=== PATIENT | female | born 1990 | race Caucasian/White ===

== ENCOUNTER → 2019-09-24 08:15 | Outpatient (CLI) | payer OTHER, SELFPAY ==
--- NOTE | ~2019-09-24 | MMUS_ITS ---
EXAMINATION: MM diagnostic garfield BI w nick, US breast RT limited, US breast LT complete HISTORY: Palpable right breast abnormality. TECHNIQUE: Additional 3-D tomosynthesis images of the breasts were performed and synthetic 2-D images were generated. CAD analysis was submitted and interpreted. High resolution bilateral breast ultraso und was performed. COMPARISON: None BREAST PARENCHYMAL COMPOSITION: The breasts are heterogenously dense, which may obscure small masses. FINDINGS: MAMMOGRAPHIC FINDINGS: There are no suspicious masses, calcifications or architectural distortion in either breast to sugges t malignancy. ULTRASOUND: Bilateral breast ultrasound: Normal heterogeneous echotexture. No focal masses to suggest malignancy. IMPRESSION: 1. No mammographic or sonographic evidence for malignancy. BI-RADS CATEGORY 1 - NEGATIVE Reviewed, dictated and finalized at location A. IMPRESSION: 1. No mammographic or sonographic evidence for malignancy. BI-RADS CATEGORY 1 - NEGATIVE IMPRESSION: 1. No mammographic or sonographic evidence for malignancy. BI-RADS CATEGORY 1 - NEGATIVE
== END ==
PROVIDERS: Visit Provider Student in an Organized Health Care Education/Training Program
DX: N63.10 Unspecified lump in the right breast, unspecified quadrant (principal); N64.4 Mastodynia
CPT/HCPCS: 76641; 76642; 77062; 77066; G0279

== ENCOUNTER → 2020-12-30 11:43 | Outpatient (CLI) | payer OTHER, SELFPAY ==
--- NOTE | ~2020-12-30 | US_ITS ---
EXAMINATION: US OB <=14 wk fetus w TV DATE: 12/30/2020 12:13 INDICATION: First trimester dating and viability assessment TECHNIQUE: Real-time pelvic transabdominal and transvaginal ultrasound was performed. COMPARISON: None. FINDINGS: The uterus measures 10 x 5.2 x 5.9 cm. There is an intrauterine gestational sac. A yolk sa c is identified. heart motion is identified measuring 155 beats per minute (bpm) by M-mode Dopp ler. The crown rump length measures 1.5 cm , which correlates with an estimated gestational age of 8 weeks and 0 day(s) (+/-) 5 day(s). The right ovary measures 3.2 x 1.8 x 1.6 cm. The left ovary measures 3.5 x 2 x 2.2 cm. There is sonu l vascular flow in the ovaries. There is no free fluid in the pelvis. IMPRESSION: 1. Live intrauterine with an estimated gestational age of 8 weeks and 0 day(s) (+/-) 5 day( s) and an estimated delivery date of 08/11/2021. Reviewed, dictated and finalized at location B. RNED GOODS REPAIRER IMPRESSION: 1. Live intrauterine with an estimated gestational age of 8 weeks and 0 day(s) (+/-) 5 day(s) and an estimated delivery date of 08/11/2021.
== END ==
PROVIDERS: PCP Family Medicine; Visit Provider Student in an Organized Health Care Education/Training Program
DX: O36.80X0 Pregnancy with inconclusive fetal viability, not applicable or unspecified (principal); Z3A.08 8 weeks gestation of pregnancy
CPT/HCPCS: 76801; 76817

== ENCOUNTER 2021-01-25 12:04 | Outpatient (CLI) | payer OTHER, SELFPAY ==
[2021-01-28 18:45] LABS: Hematocrit 40.7 % (35.0-45.0); Hemoglobin 13.9 g/dL (11.7-15.5); MCH 34.2 pg (27.0-33.0); RDW 13.2 % (11.0-15.0); Red Blood Cell Count 4.07 Mill/uL (3.80-5.10)
== END 2021-01-25 12:05 | disposition home or self-care (01) ==
LOC: ANHLAB 12:08
PROVIDERS: PCP Family Medicine; Visit Provider Student in an Organized Health Care Education/Training Program
DX: Z34.91 Encounter for supervision of normal pregnancy, unspecified, first trimester (principal); Z3A.11 11 weeks gestation of pregnancy
CPT/HCPCS: 36415; 83021

== ENCOUNTER 2021-01-30 10:20 | Outpatient (CLI) | payer OTHER, SELFPAY ==
[2021-02-02 14:47] LABS: Progesterone 22.8 ng/mL (***)
== END 2021-01-30 10:21 | disposition home or self-care (01) ==
LOC: ANHBWCLAB 10:21
PROVIDERS: PCP Family Medicine; Visit Provider Student in an Organized Health Care Education/Training Program
DX: O20.9 Hemorrhage in early pregnancy, unspecified (principal)
CPT/HCPCS: 36415; 84144; 84702

== ENCOUNTER 2021-01-31 09:54 | Outpatient (CLI) | payer OTHER, SELFPAY ==
--- NOTE | ~2021-01-31 | US_ITS ---
EXAMINATION: US OB <= 14 weeks fetus DATE: 01/31/2021 10:19 INDICATION: Hemorrhage during late first trimester of TECHNIQUE: Real-time pelvic ultrasound utilizing both a transvaginal and transabdominal probe was pe rformed. The interpreting radiologist was not present for the study. COMPARISON: 12/30/2020 FINDINGS: The uterus measures 14.0 x 11.8 x 7.6 cm. There is an intrauterine gestational sac with single livin g fetus. The crown rump length measures 6.5 cm, which is concordant within 2 days of the previously e stimated gestational age of 12 weeks and 4 days. heart motion is identified measuring 148 beats per minute (bpm) by M-mode Doppler. The placenta is anterior with no evident subchorionic hematoma. The right and left ovaries are not visualized. There is no free fluid in the pelvis. IMPRESSION: 1. Single living fetus with heart rate of 148 bpm. 2. [place]-rump length of 6.5 cm which is concordant with previously estimated gestational age by ultra sound of 12 weeks 4 day(s) based upon ultrasound dated 12/30/2020 with ultrasound estimated date of d elivery (GUILLERMO) of 08/11/2021. Reviewed, dictated and finalized at location A. TING SALES REPRESENTATIVE IMPRESSION: 1. Single living fetus with heart rate of 148 bpm. 2. Y[place]-rump length of 6.5 cm which is concordant with previously estimated ge stational age by ultrasound of 12 weeks 4 day(s) based upon ultrasound dated with ultrasound estimated date of delivery (GUILLERMO) of 08/11/2021.
== END 2021-01-31 09:55 | disposition home or self-care (01) ==
LOC: ANHIMG 09:56
PROVIDERS: PCP Family Medicine; Visit Provider Student in an Organized Health Care Education/Training Program
DX: O20.9 Hemorrhage in early pregnancy, unspecified (principal); Z3A.12 12 weeks gestation of pregnancy
CPT/HCPCS: 76801

== ENCOUNTER 2021-05-04 09:59 | Outpatient (CLI) | payer OTHER, SELFPAY ==
[2021-05-04 11:48] LABS: Basophils Percent Auto 0.4 % (0.2-1.2); Eosinophils Absolute Auto 0.1 K/mm3 (0-0.3); Eosinophils Percent Auto 0.9 % (0-4.4); Hematocrit 37.3 % (37.0-47.0); Hemoglobin 12.4 g/dL (12.0-15.0); Immature Granulocyte Absolute 0.08 K/mm3 (0.00-0.031); Immature Granulocyte Percent A 0.9 % (0-0.5); Lymphocytes Absolute Auto 0.82 K/mm3 (0.9-3.2); Lymphocytes Percent Auto 9.6 % (18.3-44.2); Mean Corpuscular HGB Conc 33.2 g/dl (32-36); Mean Corpuscular Hemoglobin 33.8 pg (26-34); Mean Corpuscular Volume 101.6 fl (80-100); Mean Platelet Volume 10.5 fl (7.4-10.4); Monocytes Absolute Auto 0.7 K/mm3 (0.1-0.6); Monocytes Percent Auto 8.2 % (2.6-8.5); Neutrophils Absolute Auto 6.8 K/mm3 (1.3-6.7); Platelet Count Result 157 k/mm3 (150-375); Red Blood Count 3.67 M/mm3 (4.2-5.4); Red Cell Distribution Width 13.2 % (11.5-14.5); White Blood Count 8.6 K/mm3 (4.5-10.0)
[2021-05-04 11:56] LABS: Glucose 1 Hour PP 50gm Dose 114 mg/dL
== END 2021-05-04 10:00 | disposition home or self-care (01) ==
LOC: ANHLAB 10:01
PROVIDERS: PCP Family Medicine; Visit Provider Student in an Organized Health Care Education/Training Program
DX: Z34.02 Encounter for supervision of normal first pregnancy, second trimester (principal); Z3A.00 Weeks of gestation of pregnancy not specified
CPT/HCPCS: 36415; 82947; 85025

== ENCOUNTER 2021-06-28 09:01 | Outpatient (CLI) | payer OTHER, SELFPAY ==
[2021-06-29 09:58] LABS: Basophils Percent Auto 0.3 % (0.2-1.2); Eosinophils Absolute Auto 0.1 K/mm3 (0-0.3); Eosinophils Percent Auto 1.8 % (0-4.4); Hematocrit 41.8 % (37.0-47.0); Hemoglobin 12.8 g/dL (12.0-15.0); Immature Granulocyte Absolute 0.06 K/mm3 (0.00-0.031); Immature Granulocyte Percent A 0.9 % (0-0.5); Lymphocytes Absolute Auto 1.07 K/mm3 (0.9-3.2); Lymphocytes Percent Auto 16.5 % (18.3-44.2); Mean Corpuscular HGB Conc 30.6 g/dl (32-36); Mean Corpuscular Hemoglobin 33.2 pg (26-34); Mean Corpuscular Volume 108.3 fl (80-100); Mean Platelet Volume 11.2 fl (7.4-10.4); Monocytes Absolute Auto 0.6 K/mm3 (0.1-0.6); Monocytes Percent Auto 9.2 % (2.6-8.5); Neutrophils Absolute Auto 4.6 K/mm3 (1.3-6.7); Neutrophils Percent Auto 71.3 % (45.5-73.1); Platelet Count Result 149 k/mm3 (150-375); Red Blood Count 3.86 M/mm3 (4.2-5.4); Red Cell Distribution Width 14.6 % (11.5-14.5); White Blood Count 6.5 K/mm3 (4.5-10.0)
[2021-06-29 10:49] LABS: HIV 1/2 Ab P24 Ag Result Negative (Negative)
[2021-06-30 06:30] LABS: Rapid Plasma Reagin Non-Reactive (NonReactive)
== END 2021-06-28 09:02 | disposition home or self-care (01) ==
PROVIDERS: PCP Family Medicine; Visit Provider Student in an Organized Health Care Education/Training Program
DX: Z34.02 Encounter for supervision of normal first pregnancy, second trimester (principal); Z3A.29 29 weeks gestation of pregnancy
CPT/HCPCS: 36415; 85025; 86592; 86703; G0432

== ENCOUNTER 2021-08-13 10:08 | Outpatient (RCR) | payer OTHER, SELFPAY ==
--- NOTE | ~2021-08-13 | US_ITS ---
EXAMINATION: US OB limited w BPP DATE: 08/13/2021 11:33 INDICATION: Biophysical profile and amniotic fluid index assessment, third trimester TECHNIQUE: Real-time pelvic ultrasound was performed. The interpreting radiologist was not present fo r the study. COMPARISON: 01/31/2021 FINDINGS: There is a single living fetus in vertex presentation. The placenta is anterior. heart rate is 130 beats per minute (bpm). The amniotic fluid index is 18.5 cm which is normal (normal range: 7.1 cm to 21.4 cm). The following biometric data were obtained: Biparietal diameter (BPD): 9.3 cm; head circumference (HC): 33.8 cm; abdominal circumference (AC): 35 .9 cm; femur length (FL): 7.6 cm. These measurements are concordant. Estimated weight is 3708 g +/- 556 g, which correlates with the 57th percentile when 08/13/2021 is used as estimated date of delivery. As single measurements, these parameters are each equal to the following estimated gestational ages w ith ranges of +/- 2 standard deviations: BPD: 37 weeks 5 days +/- 3 weeks 1 days. HC: 38 weeks 4 days +/- 2 weeks 5 days. AC: 39 weeks 6 days +/- 3 weeks 0 days. FL: 38 weeks 5 days +/- 3 weeks 1 days. estimated gestational age based solely on measurements from this exam is 38 weeks 5 days +/- 2 weeks 5 days. Biophysical profile performed by the technologist: breathing (30 sec sustained breathing in 30 minutes): 2 out of 2 movement (3 gross body movements in 30 minutes): 2 out of 2 tone (one episode of cjifkqu-uflomutbx-kkcytow limb movement): 2 out of 2 Amniotic fluid pocket (2 cm): 2 out of 2 Total score: 8 out of 8 IMPRESSION: 1. Single living fetus in vertex presentation. 2. Biophysical profile 8 out of 8. 3. Normal amniotic fluid index. 4. Estimated weight is 3708 g +/- 556 g, which correlates with the 57th percentile when 08/14/19 22 is used as estimated date of delivery. Reviewed, dictated and finalized at location A. IMPRESSION: 1. Single living fetus in vertex presentation. 2. Biophysical profile 8 out of 8. 3. Normal amniotic fluid index. 4. Estimated weight is 3708 g +/- 556 g, which correlates with the 57th p ercentile when 08/13/2021 is used as estimated date of delivery.
[2021-08-13 12:22] VITALS: BP 119/81; PULSE 110
== END 2021-08-13 11:00 | disposition home or self-care (01) ==
LOC: ANHOBOP 10:08
PROVIDERS: PCP Family Medicine; Visit Provider Student in an Organized Health Care Education/Training Program
DX: Z36.89 Encounter for other specified antenatal screening (principal); Z3A.40 40 weeks gestation of pregnancy
CPT/HCPCS: 59025; 76815; 76819

== ENCOUNTER 2021-08-13 21:53 | Inpatient (IN) | payer OTHER, SELFPAY ==
[2021-08-13 23:00] VITALS: BMI 38.9
[2021-08-13 23:49] VITALS: PULSE 89; O2SAT 99
[2021-08-13 23:54] VITALS: PULSE 107; O2SAT 100
[2021-08-13 23:59] VITALS: PULSE 89; O2SAT 100
[2021-08-13] MEDS: LACTATED RINGERS 1,000 ML 125 ML IV CONT (23:59)
[2021-08-14] VITALS (169 sets, daily range): BP systolic 75–142; BP diastolic 44–108; PULSE 74–165; RESP 18; TEMP 36.6–37; O2SAT 72–100
[2021-08-14] MEDS: ONDANSETRON INJ 4 MG/2 ML VIAL IV PUSH
[2021-08-14] MEDS: FAMOTIDINE 20 MG/2 ML VIAL (00:01)
[2021-08-14 00:09] LABS: Basophils Percent Auto 0.2 % (0.2-1.2); Eosinophils Percent Auto 0.3 % (0-4.4); Hematocrit 40.4 % (37.0-47.0); Hemoglobin 13.5 g/dL (12.0-15.0); Immature Granulocyte Absolute 0.11 K/mm3 (0.00-0.031); Immature Granulocyte Percent A 0.7 % (0-0.5); Lymphocytes Absolute Auto 1.14 K/mm3 (0.9-3.2); Lymphocytes Percent Auto 7.3 % (18.3-44.2); Mean Corpuscular HGB Conc 33.4 g/dl (32-36); Mean Corpuscular Volume 95.7 fl (80-100); Mean Platelet Volume 11.6 fl (7.4-10.4); Monocytes Percent Auto 6.6 % (2.6-8.5); Neutrophils Absolute Auto 13.4 K/mm3 (1.3-6.7); Neutrophils Percent Auto 84.9 % (45.5-73.1); Platelet Count Result 160 k/mm3 (150-375); Red Blood Count 4.22 M/mm3 (4.2-5.4); White Blood Count 15.7 K/mm3 (4.5-10.0)
--- NOTE | 2021-08-14 00:29 | WPDANESEPP ---
Anes - Eval Pre Procedure Procedure: labor epidural Date/Time: 08/14/21 00:29 Pre Op Diagnosis: Labor Patient Data Age: 31 Gender: F Height: Weight: Last Vital Signs Pulse Ox 100 08/14/21 00:27 Allergies Allergy/AdvReac Type Severity Reaction Status Date / Time No Known Drug Allergies Allergy Unknown Verified 08/11/21 08:56 Home Medications Medication Instructions Recorded Confirmed Type docosahexaenoic acid 200 mg 200 mg PO DAILY 12/16/20 07/31/21 History capsule ( DHA) Laboratory Tests 08/13/21 08/13/21 23:57 23:57 WBC 15.7 K/mm3 H K/mm3 (4.5-10.0) RBC 4.22 M/mm3 M/mm3 (4.2-5.4) Hgb 13.5 g/dL g/dL (12.0-15.0) Hct 40.4 % % (37.0-47.0) MCV 95.7 fl fl (80-100) MCH 32.0 pg pg (26-34) MCHC 33.4 g/dl g/dl (32-36) RDW 14.0 % % (11.5-14.5) Plt Count 160 k/mm3 k/mm3 (150-375) MPV 11.6 fl H fl (7.4-10.4) Immature Gran % (Auto) 0.7 % H % (0-0.5) Neut % (Auto) 84.9 % H % (45.5-73.1) Lymph % (Auto) 7.3 % L % (18.3-44.2) Newberry % (Auto) 6.6 % % (2.6-8.5) Eos % (Auto) 0.3 % % (0-4.4) Baso % (Auto) 0.2 % % (0.2-1.2) Lymph # (Auto) 1.14 K/mm3 K/mm3 (0.9-3.2) [place]berry # (Auto) 1.0 K/mm3 H K/mm3 (0.1-0.6) Eos # (Auto) 0.0 K/mm3 K/mm3 (0-0.3) Baso # (Auto) 0.0 K/mm3 K/mm3 (0.0-0.1) Abs Immat Gran (auto) 0.11 K/mm3 H K/mm3 (0.00-0.031) Absolute Neuts (auto) 13.4 K/mm3 H K/mm3 (1.3-6.7) Absolute Nucleated RBC 0.0 K/mm3 K/mm3 (0.0-0.012) Nucleated RBC % 0.0 % % (0.0-0.2) RPR Pending Patient hx anesthesia problems: none Family hx anesthesia problems: none Results Review: All pre-operative results and documents have been reviewed as part of the pre-operative evaluation. FOR[facility], [facility] Surgical History Surgical History [place] teeth removed Family History Family History Father Hypertension Family history of diabetes mellitus in first degree relative Family history of elevated blood lipids Family history of type 2 diabetes mellitus Grandparent Carcinoma of colon Family history of malignant neoplasm of ovary Mother Family history of malignant neoplasm of ovary Other Diabetes mellitus Family history of cardiovascular disease Family history of malignant neoplasm Family history of malignant neoplasm of bone Family history of primary malignant neoplasm of liver Social History Social History Smoking status: Never smoker Second hand tobacco smoke exposure: No Alcohol intake: former Alcohol use details: hasn't been drinking alcohol while Substance use: never Substance use type: does not use Gender identity (if verbalized by the patient): Female Sexual Orientation (if Verbalized by the Patient): Straight or Heterosexual Spiritual care concerns: No Exam Day of Procedure 08/14/21 00:29 Patient weight: obese Heart: regular rate and rhythm Lungs: normal air movement Airway: Mallampati scale Neurological: alert and oriented
--- NOTE | 2021-08-14 01:37 | LDADM ---
This patient, Melissa Barton, was admitted to Labor/Delivery/Recovery 106 on 08/13/21 at 21:53. Plans for labor, pain management and were discussed with patient. Patient/family oriented to hospital policies and general routines including ID bracelet, bed and alarms, visiting hours, pain management, procedures, bathroom and other care routines, personal items, smoking policy, room service/diet and guest tray routines, infant security routines, and visiting hours. Patient/Family are encouraged to report perceived risks to care and to ask questions if they do not understand what they are told or what they should do. See OBIX for further documentation.
[2021-08-14] MEDS: OXYTOCIN 30 UNITS/NS 500 ML 30 UNITS/500 ML BAG 6 UNITS IV CONT (06:25)
[2021-08-14] MEDS: LACTATED RINGERS 1,000 ML 125 ML IV CONT (06:42)
--- NOTE | 2021-08-14 07:19 | PM.IMHP ---
H&P: HPI History of Present Illness Date/Time: 08/14/21 07:19 Chief Complaint: Contractions Narrative: Patient is a 31yo LMP 11/06/20 currently 40w1d gestation with GUILLERMO 08/13/21 who presented to L&D with complaint of contractions. Patient is dated by LMP c/w US on 12/30/20 at 8w gestation. Patient reports onset of contractions yesterday afternoon that increased in frequency and intensity last night. Denies any vaginal bleeding or leakage of fluid. Reports good movement. Patient was noted to be in labor at time of arrival to L&D. Review of Systems Review of Systems: All systems reviewed & are unremarkable except as noted in HPI and below Constitutional: Constitutional: Reports as per HPI and Reports no additional constitutional complaints Eyes: Eyes: Reports as per HPI and Reports no additional eye complaints ENT: Reports system reviewed and no additional complaints, except as documented and Reports as per HPI Cardiovascular: Cardiovascular: Reports as per HPI and Reports no additional cardiovascular complaints Respiratory: Respiratory: Reports as per HPI and Reports no additional respiratory complaints Gastrointestinal: Gastrointestinal: Reports as per HPI and Reports no additional gastrointestinal complaints Genitourinary: Genitourinary: Reports no additional female genitourinary complaints and Reports as per HPI Musculoskeletal: Musculoskeletal: Reports no additional musculoskeletal complaints and Reports as per HPI Integumentary/Breasts: Skin/Breast: Reports system reviewed and no additional complaints, except as docu and Reports as per HPI Neurologic: Reports system reviewed and no additional complaints, except as documented and Reports as per HPI Psychiatric: Psychiatric: Reports no additional psychiatric complaints and Reports as per HPI Endocrine: Endocrine: Reports no additional endocrine complaints and Reports as per HPI Hematologic/Lymphatic: Hematologic/Lymphatic: Reports no additional hematologic/lymphatic complaints and Reports as per HPI Allergic/Immunologic: Allergic/Immunologic: Reports no additional allergic/immunologic complaints and Reports as per HPI PMFSH Surgical History Surgical History [place] teeth removed Family History Family History Father Hypertension Family history of diabetes mellitus in first degree relative Family history of elevated blood lipids Family history of type 2 diabetes mellitus Grandparent Carcinoma of colon Family history of malignant neoplasm of ovary Mother Family history of malignant neoplasm of ovary Other Diabetes mellitus Family history of cardiovascular disease Family history of malignant neoplasm Family history of malignant neoplasm of bone Family history of primary malignant neoplasm of liver Social History Social History Smoking status: Never smoker Second hand tobacco smoke exposure: No Alcohol intake: former Alcohol use details: hasn't been drinking alcohol while Substance use: never Substance use type: does not use Gender identity (if verbalized by the patient): Female Sexual Orientation (if Verbalized by the Patient): Straight or Heterosexual Spiritual care concerns: No Meds Home Medications and Allergies Home Medications Medication Instructions Recorded Confirmed Type docosahexaenoic acid 200 mg 200 mg PO DAILY 12/16/20 07/31/21 History capsule ( DHA) Allergies Allergy/AdvReac Type Severity Reaction Status Date / Time No Known Drug Allergies Allergy Unknown Verified 08/11/21 08:56 Vital Signs Vital Signs - 24 hr 08/13/21 23:49 08/13/21 23:54 08/13/21 23:59 Temperature Pulse Rate Blood Pressure Pulse Oximetry 99 100 100 08/14/21 00:04 08/14/21 00:09 08/14/21 00:14 Temperature Pulse Rate
--- NOTE | 2021-08-14 10:26 | PM.OBPRVD ---
OB - Delivery Note Procedure Delivery date: 08/14/21 Procedure: The patient is a 31-year-old now 001 who presented to Labor and delivery on the evening of 08/13/2021 at 40 weeks gestation with complaints of contractions. Patient was noted to be in labor at time of presentation. She was approximately 5 cm dilated and admitted to Labor and delivery. Patient was observed for several hours, during which time she made minimal cervical change. Pitocin was started for labor augmentation. Patient became uncomfortable and requested an epidural for pain management which was placed without difficulty. Artificial rupture membranes was performed at 6:53 a.m. Clear amniotic fluid was noted. Pitocin was continuously titrated. Patient made cervical change and was noted to be fully dilated at 8:05 a.m. Patient was encouraged to push and found to be pushing well. She was prepped and draped for delivery. At 9:49 a.m., patient delivered infant head atraumatically and without difficulty in MABLE presentation. Occiput restituted to maternal left side. With subsequent push, the infant's neck, shoulders, and rest of body delivered without difficulty. Infant's nose and mouth were suctioned with bulb suction and was placed on maternal abdomen where care was assumed by awaiting nursing staff. Delayed cord clamping was performed for approximately 3 minutes until cord was pulseless, per request. Cord was clamped and cut. A segment of cord was collected for cord gases. Cord blood was collected. The placenta was delivered spontaneously and intact. Uterine fundus was noted to be firm with massage. On inspection, a first-degree perineal laceration as well as a right labial laceration were noted. These lacerations were repaired with 2-0 and 3-0 Vicryl in the usual fashion. Excellent hemostasis was noted. Estimated blood loss for entire delivery was 350 cc. Infant was a live-born female , Apgars 8 and 9, weight pending. Both mother and baby doing well at end of delivery. Delivery augmentation: Rupture of Membranes and Pitocin Delivery monitor: External FHT and External Uterine Route of delivery: Laceration Description: Perineal - 1st Degree and Labial (right ) Delivery repair: vicryl (2-0 and 3-0 vicryl) Specimen: Yes (cord blood and cord gases) Quantitative Blood Loss (ml): 350 Anesthesia type: Epidural Disposition: Floor Complications: No immediate complications Baby Date of : 08/14/21 Time of : 09:49 Weeks of gestation at delivery: 40 (40.1) gender: Female presentation: vertex position: Left Occiput Anterior Placenta delivery description: Spontaneous Cord Vessel Description: 3 Vessels and Delayed Cord Clamping score one minute: 8 score five minutes: 9 Narrative: weight pending AMG Delivery Billing Delivery Delivery: Delivery Charge
[2021-08-14] MEDS: OXYTOCIN 30 UNITS/NS 500 ML 30 UNITS/500 ML BAG 125 UNITS IV CONT (10:31)
[2021-08-14] MEDS: IBUPROFEN 600 MG TABLET PO ×2 (11:40→20:40)
[2021-08-14] MEDS: WITCH HAZEL 40 PADS 1 PAD TOPICAL (12:21)
[2021-08-14] MEDS: BENZOCAINE 20% AER SPR (*SP) 56 GM CAN 1 SPRAY TOPICAL (12:21)
--- NOTE | 2021-08-14 12:57 | PC.NURSE ---
Patient transferred to post room #285 via wheelchair. Support person present. Oriented to unit, room, information board, rooming in, admission packet and security measures. Patient verbalizes understanding.
--- NOTE | 2021-08-14 14:12 | PC.NURSE ---
[id number] Introductions were made, then consulted with patient to assess needs related to . Mother led the conversation with her experience feeding her so far with the first feeding not going so well. Mother has the skin to skin. Mother works well with her infant with encouragement and education. Encouraged understanding of the benefits of skin to skin (unwrapping infant and placing vertically on her chest), responsive feeding and how to watch for early feeding signs, frequency of feeding on demand about every 8-12 times in 24 hours (every 2-3 hours), milk production, duration of feeding, signs of adequate intake/output and how to record on the feeding sheet. Reviewed positioning and ear, shoulder, hip alignment, supporting the breast, asymmetrical latch (off-center), and leading with the chin with a big open side gape. Attempted to latch to the right breast in cross cradle and football position. Infant does not latch optimally. There is not a big open wide gape and clicking sounds are heard with sucking. Demonstrated to mother how to detach from the breast. was unable to maintain latch without discomfort to mother. Nipple care reviewed with optimal latch and good positioning. Reviewed good handwashing when or touching the breast/nipples to prevent infection. Resources used to facilitate learning were used with the visual handouts/ tool/mom and baby guide. Mother hand expressed 4-5 mls of colostrum into a spoon and it was fed to infant, then laid skin to skin with mother. RN encouraged tearful mother to grab some lunch. Father of baby suggests that mother would like to try to breastfeed but it more interested in pumping human milk to feed infant. RN suggested hand expressing,manual or electric pumping due to ineffective and grade 2 inverted nipples. Mother voiced understanding of responsive feedings, stimulating with skin to skin, hand expressed colostrum, talking to infant to encourage if it has been 2 -3 hours since the start of the last , to call if does not latch or there is discomfort with . Reported to the primary RN.
--- NOTE | 2021-08-14 15:29 | PC.NURSE ---
[id number] Consulted with patient to assess needs related to . Attempted infant to breast with no effective latch. latches to the nipple. Breast pump provided due to ineffective . Instructions given on cleaning, care, usage, that there should be no pain, pumping schedule for milk production, collection, and storage of human milk. Parents are encouraged to record pumping schedule on the feeding sheet. Patient was assessed for correct placement, flange size (27mm), to pump for comfort and nipple stretching/stimulation for adequate milk production every 3 hours (8 times in 24 hours). Discussed the risks and benefits of using a nipple shield for the next feeding as a temporary tool to teach infant to use a wide open gape to latch to the breast optimally. Mother voiced understanding of the education shared, calling for assistance if the infant does not latch or if there is discomfort with . Reported to the primary RN.
--- NOTE | 2021-08-14 15:45 | PC.NURSE ---
Pt. up to the bathroom, voided 300cc's, pericare done. Ice, tucks and spray discussed and applied.
[2021-08-14 16:29] LABS: Rapid Plasma Reagin Non-Reactive (NonReactive)
[2021-08-15] VITALS: BP 111/62; PULSE 98; RESP 18; TEMP 36.8
[2021-08-15 04:00] VITALS: BP 107/65; PULSE 86; RESP 18; TEMP 36.5
[2021-08-15] MEDS: IBUPROFEN 600 MG TABLET PO (04:26)
[2021-08-15 05:36] LABS: Hematocrit 30.1 % (37.0-47.0)
[2021-08-15 07:40] VITALS: BP 99/64; PULSE 72; RESP 18; TEMP 36.8; O2SAT 98
[2021-08-15 08:00] VITALS: PULSE 72; RESP 18; O2SAT 98
--- NOTE | 2021-08-15 08:32 | PM.OBPNVD ---
OB - PN: Subj Subjective Date/time seen: 08/15/21 08:32 Patient doing well. Pain reasonably controlled with medication. Minimal lochia. Ambulating well. Voiding well. OB - PN: Obj Data Labs CBC & Chem 7: 08/15/21 04:31 Labs: Laboratory Results - last 24 hr 08/13/21 08/15/21 23:57 04:31 Hgb 10.0 L D Hct 30.1 L RPR Non-reactive OB - PN A/P Assessment and Plan (1) Normal spontaneous vaginal delivery: Code(s): O80 - Encounter for full-term uncomplicated delivery Status: Acute Assessment and Plan: PPD#1 doing well continue routine care pt requesting dc home today if infant cleared emergency precautions reviewed f/u in office in 4-6 weeks for Time Spent With Patient Time: Total time spent is greater than 50% in coordination of care (as documented) at patient's floor/unit and/or counseling patient: Exam Const: General: cooperative, healthy appearing, comfortable and no acute distress GI: Inspection: non-distended GI Palp: Yes Soft to palpation and No Tenderness to palpation present (GI) Other: fundus firm below umbilicus Extrem: Right lower extremity: edema (trace) Left lower extremity: edema (trace) Other: no calf tenderness
--- NOTE | 2021-08-15 08:35 | PM.OBDSVD ---
DS: Admitting Diagnosis Discharge Date 08/15/21 Admitting Diagnosis IUP at 40w Labor OB - DS: Summary OB Procedures : None OB Procedures Intrapartum: Spontaneous Vag Delivery OB Procedures: : None Time Spent with Patient Time attestation: Total time spent providing and/or coordinating discharge services: DS: Data Data Completed and Pending Labs on day of discharge: Labs from last 24 hours 08/15/21 08/13/21 04:31 23:57 Hgb 10.0 L D Hct 30.1 L RPR Non-reactive Discharge Plan Discharge Attending physician on discharge: Angely Ortez Discharging Clinician: Angely Ortez Anticipated Discharge Date/Time: 08/15/21 12:00 Patient Disposition: Home, Self-Care Activity: as tolerated and pelvic rest Diet: regular Discharge Instructions: Call office ([phone]) to schedule a visit in 4-6 weeks. You may take Ibuprofen 600mg every 6 hours as needed for pain. Pain medication may make you constipated. It may be helpful to take an jvmn-[id number]-[id number] stool softener, such as Colace and/or Senokot, along with the pain medication to help lessen constipation. Call office or go to ED for pain not controlled with medication, headache, chest pain, shortness of breath, fever, chills, persistent nausea or vomiting, severe abdominal pain, heavy vaginal bleeding >2 pads/hour, foul vaginal discharge or odor, or problems with your breasts. Patient Instructions: Antibiotic Form Stand Alone Forms: General Discharge Information Follow-up/Referrals: Angely Ortez MD [Physician] - Discharge Medications: Continued DHA 200 mg capsule 200 mg PO DAILY Date of admission: 08/13/21 21:53 Primary Care Provider: Michael Almanza Admitting Provider: Angely Ortez Attending physician on admission: Angely Ortez Condition: Stable
--- NOTE | 2021-08-15 11:37 | PC.NURSE ---
[id number] Breast pump provided yesterday due to ineffective feeding. Instructions given on cleaning, care, usage, that there should be no pain, pumping schedule for milk production, collection, and storage of human milk. Parents are encouraged to record pumping schedule on the feeding sheet. Mother chooses to hand express because she produces more colostrum when hand expressing versus electric pumping. Encouraged to pump for comfort and nipple stretching/stimulation for adequate milk production every 3 hours (8 times in 24 hours) due to inverted nipples and both techniques can be beneficial. Mother voiced understanding of the education shared along with mom and baby guide for additional resource information. Reported to the primary RN. [id number] Mother desires to hand express and feed colostrum at this time. Discussed risks and benefits as it pertains to jaundice, how to manage and when to call the ICP. Mother may stay another night for assistance. She states she might want RN to come back later to work with the nipple shield and . Discussed the risks and benefits of using a nipple shield. Parents voiced understanding to call if she needs assistance feeding her infant. Reported to primary RN
[2021-08-15 19:00] VITALS: BP 109/74; PULSE 76; RESP 18; TEMP 36.6
[2021-08-15] MEDS: WITCH HAZEL 40 PADS 1 PAD TOPICAL (19:54)
[2021-08-15] MEDS: LANOLIN (LANSINOH) 7.5 GM CREAM 1 APPLIC TOPICAL (19:54)
[2021-08-16] MEDS: IBUPROFEN 600 MG TABLET PO ×2 (07:10)
[2021-08-16] MEDS: WITCH HAZEL 40 PADS 1 PAD TOPICAL (07:10)
[2021-08-16] MEDS: DOCUSATE SODIUM 100 MG CAPSULE PO (07:10)
[2021-08-16] MEDS: MULTIVIT/MIN/PREN/FOL AC/IRON TABLET 1 TAB PO (07:10)
[2021-08-16] MEDS: BENZOCAINE 20% AER SPR (*SP) 56 GM CAN 1 SPRAY TOPICAL (07:10)
[2021-08-16 09:00] VITALS: BP 115/72; PULSE 66; RESP 16; TEMP 36.6; O2SAT 100
--- NOTE | 2021-08-16 09:14 | PM.OBPNVD ---
OB - PN: Subj Subjective Date/time seen: 08/16/21 09:14 Doing well. No significant pain/cramping. Minimal-moderate lochia. Voiding well. Ambulating without difficulty. OB - PN: Obj Data Labs CBC & Chem 7: 08/15/21 04:31 OB - PN A/P Assessment and Plan (1) Normal spontaneous vaginal delivery: Code(s): O80 - Encounter for full-term uncomplicated delivery Status: Acute Assessment and Plan: PPD#2 doing well continue routine care dc home today in stable condition emergency precautions reviewed f/u in 4-6 weeks for visit Time Spent With Patient Time: Total time spent is greater than 50% in coordination of care (as documented) at patient's floor/unit and/or counseling patient: Exam Const: General: cooperative, healthy appearing, comfortable and no acute distress GI: Inspection: non-distended GI Palp: Yes Soft to palpation and No Tenderness to palpation present (GI) Other: fundus firm below umbilicus Extrem: Right lower extremity: edema Details: 1+ Left lower extremity: edema Details: 1+ Other: no calf tenderness
[2021-08-17 09:12] VITALS: BP 123/68; PULSE 90; RESP 18; TEMP 36.7; O2SAT 100
== END 2021-08-16 13:28 | disposition home or self-care (01) | DRG 807 ==
LOC: ANHLDR 08-14 07:02 → ANHOB2 08-14 13:00
PROVIDERS: Admitting Provider Student in an Organized Health Care Education/Training Program; PCP Family Medicine; Visit Provider Student in an Organized Health Care Education/Training Program
DX: O76 Abnormality in fetal heart rate and rhythm complicating labor and delivery (principal); Z37.0 Single live birth; O70.0 First degree perineal laceration during delivery; Z3A.40 40 weeks gestation of pregnancy
CPT/HCPCS: 36415; 59025; 76815; 76819; 85014; 85018; 85025; 86592; 86850; 86900; 86901; A9270; J2405; J2590; J2795; J7120

== ENCOUNTER 2022-07-15 10:43 | Outpatient (CLI) | payer OTHER, SELFPAY ==
--- NOTE | ~2022-07-15 | XR_ITS ---
EXAMINATION: XR shoulder LT min 2V DATE: 07/15/2022 11:03 INDICATION: Left shoulder pain. TECHNIQUE: 4 views of left shoulder were obtained. COMPARISON: None. FINDINGS: Bone alignment is normal. No fracture. Glenohumeral joint is normal. There is mild acromioc lavicular joint osteoarthritis. IMPRESSION: 1. Mild left acromioclavicular joint osteoarthritis. Reviewed, dictated and finalized at location A.
== END 2022-07-15 10:44 | disposition home or self-care (01) ==
PROVIDERS: PCP Family Medicine; Visit Provider Nurse Practitioner Family
DX: M19.012 Primary osteoarthritis, left shoulder (principal)
CPT/HCPCS: 73030

== ENCOUNTER 2022-12-10 16:38 | Outpatient (CLI) | payer OTHER, SELFPAY ==
--- NOTE | ~2022-12-10 | XR_ITS ---
EXAM: XR ankle RT min 3V, [id number] DATE: 12/10/2022 16:59 HISTORY: M25.579 - Pain in unspecified ankle and joints of foot unspeci... . COMPARISON: None available. FINDINGS: Decreased mineralization. No fracture or dislocation. No lytic or blastic lesion. Mild ly lux valgus Joint spaces are maintained. No erosion or periosteal change. Soft tissues within normal l imits. IMPRESSION: Osteopenia. Mild hallux valgus. Reviewed, dictated and finalized at location K. IMPRESSION: Osteopenia. Mild hallux valgus.
== END 2022-12-10 16:39 | disposition home or self-care (01) ==
LOC: ANHIMG 16:41
PROVIDERS: PCP Family Medicine; Visit Provider Family Medicine
DX: M85.871 Other specified disorders of bone density and structure, right ankle and foot (principal); M20.11 Hallux valgus (acquired), right foot
CPT/HCPCS: 73610; 73630

== ENCOUNTER 2024-11-25 07:52 | Outpatient (CLI) | payer BC, SELFPAY ==
--- NOTE | ~2024-11-25 | MMUS_ITS ---
EXAMINATION: MM diagnostic garfield BI w nick, US breast RT limited INDICATION: 34-year old female; Presents for evaluation of palpable pea-sized lump in the right breast felt by her. COMPARISON: 09/24/2019 TECHNIQUE: Digital breast tomosynthesis CC and MLO views of Both breasts and spot compression views of the palpable area in the Right breast were obtained with computer-aided detection to assist in interpretation of the study. A radiopaque skin marker was placed over the area of RIGHT breast palpable lump area. MAMMOGRAM FINDINGS: There are scattered areas of fibroglandular density. There are no suspicious masses, calcifications, architectural distortion or any other abnormality in either breast. No suspicious mammographic abnormality correlates to the radiopaque skin marker. RIGHT BREAST ULTRASOUND FINDINGS: Targeted sonographic evaluation of the palpable area was completed. There is no sonographic abnormality that correlates to the area of palpable lump. IMPRESSION: 1. No mammographic or sonographic finding correlates to the palpable lump in the RIGHT breast. 2. No mammographic evidence of malignancy within BILATERAL breasts. Recommendations: Clinical management of patient's palpable lump. Follow-up as clinically warranted. Annual screening bilateral mammography at age 40. BI-RADS 1, NEGATIVE Reviewed, dictated and finalized at location B. IMPRESSION: 1. No mammographic or sonographic finding correlates to the palpable lump in th e RIGHT breast. 2. No mammographic evidence of malignancy within BILATERAL breasts. Recommendations: Clinical management of patient's palpable lump. Follow-up as clinically warrant ed. Annual screening bilateral mammography at age 40. BI-RADS 1, NEGATIVE
== END 2024-11-25 07:53 | disposition home or self-care (01) ==
LOC: MICIMG 07:52
PROVIDERS: PCP Family Medicine; Visit Provider Nurse Practitioner Family
DX: N63.10 Unspecified lump in the right breast, unspecified quadrant (principal)
CPT/HCPCS: 76642; 77062; 77066; G0279